=== PATIENT | male | born 1985 | race Caucasian/White ===

== ENCOUNTER 2017-06-17 16:15 | Emergency (ER) | payer BC ==
--- NOTE | ~2017-06-17 | ER ---
PATIENT'S NAME: BETH MONROY [facility] AGE: 32 Y [address] ROOM: [place] [id number] LOCATION: [facility] ADMIT DATE: 06/17/2017 ER/Outpatient Report DISCHARGE DATE: 06/17/2017 FAMILY PHYSICIAN: Kim Krishnamurthy MD ATTENDING PHYSICIAN: Gasper Clemons Time of Arrival: 1615 hours. Time of Evaluation: 1615 hours. CHIEF COMPLAINT: Chest pain and shortness of breath. HISTORY OF PRESENT ILLNESS: The patient is a 32-year-old male who presents to the emergency department today with chief complaint of chest pain and shortness of breath. He reports this started about 7 days prior to arrival. He reports he was admitted to [facility] yesterday. He reports that they gave him no answers and he was discharged, so he came here for another opinion. He reports this pain is sharp stabby type pain, it is the left side of his chest. It also goes to the middle of his chest. It is currently 4/10 in severity. No ripping or tearing sensation. He does report dry cough. No nausea or vomiting. No diarrhea or constipation. PAST MEDICAL HISTORY: Seizures. PAST SURGICAL HISTORY: Vasectomy. SOCIAL HISTORY: The patient denies any tobacco, alcohol, or illicit drug use. ALLERGIES: NO KNOWN DRUG ALLERGIES. MEDICATIONS: None. PRIMARY CARE DOCTOR: Kim Krishnamurthy MD, in [place]. REVIEW OF SYSTEMS: All systems are reviewed by myself and are negative with the exception of those discussed in HPI and past medical history. PATIENT'S NAME: BETH MONROY [facility] AGE: 32 Y [address] ROOM: [place] [id number] LOCATION: [facility] ADMIT DATE: 06/17/2017 ER/Outpatient Report DISCHARGE DATE: 06/17/2017 FAMILY PHYSICIAN: Kim Krishnamurthy MD ATTENDING PHYSICIAN: Gasper Clemons PHYSICAL EXAMINATION: VITAL SIGNS: Weight 84.9 kg. Blood pressure 122/75, pulse 72, respiratory rate 16, temperature 97.9, oxygen saturation 100% on room air. GENERAL: The patient is a 32-year-old male, appears stated age. Well developed, well nourished, in no acute distress at this time. HEENT: Head normocephalic, atraumatic. Pupils are equal, round, and reactive to light. Oropharynx is clear. NECK: Supple. There is no nuchal rigidity. CARDIOVASCULAR: Regular rate and rhythm. No murmurs, rubs, or gallops. LUNGS: Clear to auscultation bilaterally. No wheezes, rales, or rhonchi. ABDOMEN: Soft, mild midepigastric tenderness to palpation. No rebound, rigidity, or guarding. Positive bowel sounds. MUSCULOSKELETAL: The patient has tenderness to palpation along the left ribs as well. Moves all 4 extremities, 5/5 muscle strength. SKIN: Warm and dry. There are no rashes or lesions noted. LABORATORY DATA AND X-RAYS: Labs and x-rays are obtained. CBC is normal. Coags are normal. D-dimer is less than 0.19. EKG shows sinus bradycardia with a rate of 59, normal axis, normal interval. No ST elevation, ST depression, T-wave inversion. CMP is normal. LFTs normal. Magnesium is normal. Lipase is normal. CK is normal and cardiac enzymes are normal. Two-view chest x-ray showed negative. Free T4 is normal. TSH is normal. H. pylori is positive. IMPRESSION: 1. Helicobacter pylori positive. 2. Gastritis. 3. Chest pain, suspect due to Helicobacter pylori positive. 4. Initial visit. EMERGENCY DEPARTMENT COURSE: The patient brought back to the examination room. Seen immediately upon arrival by myself. Laboratory analysis and EKG are obtained as described above. I have reviewed the patient's records from [place]. He did have a stress test yesterday that was negative. He had multiple cardiac enzymes that were normal as well. I have discussed results with the patient and his significant others at the bedside. I have written a prescription treatment for H. pylori including clarithromycin, omeprazole and amoxicillin. I have discussed close followup with the patient's primary care doctor, Kim Krishnamurthy. He is instructed to follow up in 3-5 days and I have also requested he follows up with the cargo agent for consideration for possible scope. The patient's questions are answered. He is without further questions. We did discuss return to care instructions including worsening PATIENT'S NAME: BETH MONROY [facility] AGE: 32 Y [address] ROOM: [place] [id number] LOCATION: [facility] ADMIT DATE: 06/17/2017 ER/Outpatient Report DISCHARGE DATE: 06/17/2017 FAMILY PHYSICIAN: Kim Krishnamurthy MD ATTENDING PHYSICIAN: Gasper Clemons symptoms or any other concerns to return to the emergency department as soon as possible. The patient is agreeable without further questions. DISPOSITION: The patient discharged home in good condition. DO KURT COLEY/jeff /[id number] d: 06/18/17 0642 t: 06/18/17 1458, OUTPATIENT REPORT
[2017-06-17 16:44] LABS: BASOPHIL % 0.4 %; EOSINOPHIL # 0.1 K/uL (0.0-0.5); EOSINOPHIL % 0.9 %; HEMATOCRIT 44.9 % (37.0-53.0); HEMOGLOBIN 14.9 g/dL (12.0-17.0); IMMATURE GRANULOCYTE % 0.3 %; MCH 29.9 pg (27.0-34.0); MCHC 33.2 gm/dL (32.0-36.5); MONOCYTE # 0.6 K/uL (0.0-1.0); MONOCYTE % 8.5 %; MPV 9.8 fl (9.4-12.4); NEUTROPHIL # (ANC) 4.7 K/uL (1.4-9.0); NEUTROPHIL % 62.9 %; NRBC % 0 /100WBC (0-0.00); PLATELET COUNT 204 K/uL (150-450); RBC 4.99 M/uL (4.00-6.00); RDW-CV 12.3 % (11.9-14.6); WBC 7.5 K/uL (4.0-11.0)
[2017-06-17 16:52] LABS: INR - (THERAPEUTIC) 0.97 (0.92-1.07); PROTIME 10.2 SECONDS (9.8-11.4); PTT 28 SECONDS (25-32)
[2017-06-17 17:10] LABS: ALBUMIN 4.1 gm/dL (3.5-5.0); ALK PHOS 96 IU/L (33-138); ALT 27 IU/L (12-78); ANION GAP 10.9 (10.0-19.0); AST 17 IU/L (10-40); BLOOD UREA NITROGEN 12 mg/dL (6-24); CHLORIDE 104 mMol/L (96-110); CO2 28 mMol/L (22-32); CPK 95 IU/L (35-332); CREATININE 1.1 mg/dL (0.6-1.3); MAGNESIUM 2.1 mg/dL (1.8-2.6); POTASSIUM 3.9 mMol/L (3.7-5.1); SODIUM 139 mMol/L (135-145); TOTAL BILIRUBIN 0.5 mg/dL (0.0-1.5); TOTAL PROTEIN 7.4 g/dL (6.0-8.4)
== END 2017-06-17 17:58 | disposition disaster alternative care site (69) ==
LOC: GMED 16:15
PROVIDERS: Emergency Medicine
DX: K29.70 Gastritis, unspecified, without bleeding (principal); B96.81 Helicobacter pylori [H. pylori] as the cause of diseases classified elsewhere; Z98.52 Vasectomy status
CPT/HCPCS: J1885; J2001